=== PATIENT | female | born 1965 | race Caucasian/White ===

== ENCOUNTER 2017-11-06 07:17 | Day surgery (SDC) | payer MEDICAID, MEDICARE ==
[~2017-11-06 07:17] MED LIST: ACETAMINOPHEN 1,000 MG/100 ML BTL IV ONE
[2017-11-06] MEDS ORDERED: PROPOFOL 10 MG/ML VIAL IV ONE (07:18)
[2017-11-06] MEDS ORDERED: SEVOFLURANE 250 ML INH ONE (07:18)
[2017-11-06] MEDS ORDERED: METOCLOPRAMIDE HCL 10 MG/2 ML VIAL IVP ONE (07:18)
[2017-11-06] MEDS ORDERED: ONDANSETRON HCL IV 4 MG/2 ML VIAL IVP ONE (07:18)
[2017-11-06] MEDS ORDERED: FENTANYL PF 100MCG/2ML VIAL IV ONE (07:18)
[2017-11-06] MEDS ORDERED: ROCURONIUM BROMIDE 50MG/5ML VIAL IV ONE (07:18)
[2017-11-06] MEDS ORDERED: SUCCINYLCHOLINE 20 MG/ML 10ML IVP ONE (07:18)
[2017-11-06] MEDS ORDERED: BUPIVACAINE 0.25% W/EPI MPF 30ML VIAL IVP ONE (07:18)
--- NOTE | 2017-11-29 17:40 | Operative Note ---
DATE OF SURGERY: 11/06/2017 Surgeon: Simone Alvarez DO PREOPERATIVE DIAGNOSIS: Gluteal mass. POSTOPERATIVE DIAGNOSIS: Gluteal mass. OPERATION: Wide excision of gluteal mass. Indication: The patient is a 52-year-old female who has had a mass in her cleft for quite some time. On exam, this is very firm and irregular. We did discuss wide excision. Risks, benefits, and alternatives were discussed. Thereafter, consent was signed and questions answered. PROCEDURE: The patient was taken to the operating room and placed in a supine position. She was rotated into prone position. Her gluteal region was prepped and draped in the usual sterile fashion. The area in her muriel cleft was anesthetized with a total of 8 mL of 0.25% Sensorcaine with epinephrine. Elliptical incision was made around the mass down to the subcutaneous tissue, and this was passed off the field. The wound was then irrigated and closed with 3-0 Vicryl and 3-0 nylon. This measured about 4 x 2 cm in the subcu. She tolerated the procedure well. CC: Chel Call DO [facility]OSPITALTerence
== END 2017-11-06 11:30 | disposition home or self-care (01) ==
LOC: SUR 07:17
PROVIDERS: ATTEND Surgery
DX: D23.5 Other benign neoplasm of skin of trunk (principal); E03.9 Hypothyroidism, unspecified; J45.909 Unspecified asthma, uncomplicated; G47.33 Obstructive sleep apnea (adult) (pediatric); K21.9 Gastro-esophageal reflux disease without esophagitis
CPT/HCPCS: J0330; J2405; J2765